=== PATIENT | female | born 1940 | race Caucasian/White ===

== ENCOUNTER 2020-09-23 21:51 | Emergency (ER) | payer MEDICARE, SELFPAY ==
--- NOTE | ~2020-09-23 | CT_ITS ---
EXAMINATION: CT soft tissue neck w con EXAM DATE: 09/24/2020 00:27 INDICATION: sore throat, tongue swelling. TECHNIQUE: Spiral CT of the neck was performed following intravenous injection of 75 mL Omnipaque 350 . Axial, coronal and sagittal images were reviewed. The dose-length product (DLP) for this examinat ion was 438.22 mGy-cm. The exposure was tailored according to patient size (auto mA exposure control ), and iterative reconstruction (ASIR) was used as additional dose reduction technique. There is no prior study for comparison. FINDINGS: The thyroid gland is unremarkable. The submandibular and parotid glands are symmetric. There is no cervical lymphadenopathy. There are no masses identified. The superior mediastinum is unremarkable. The airway is unremarkable. Parapharyngeal and pre-glottic fat planes are preserve d. The opacified vasculature is patent. Common carotid arteries are tortuous. Patient has had bilat eral ocular lens surgery. Visualized sinuses and mastoid air cells are well aerated. Lung apices are unremarkable. Severe cervical facet arthropathy. IMPRESSION: Unremarkable CT soft tissue neck w con exam. Reviewed, dictated and finalized at location A. [employer] [employer]
[2020-09-23 21:56] VITALS: BP 143/85; PULSE 112; RESP 18; TEMP 36.2; O2SAT 96
--- NOTE | 2020-09-23 22:57 | PC.NURSE ---
patient brought back to ED room 8 with c/o sore throat. see notes. no change in patient's condition since initial assessment done. alert. oriented. has seen PCP. was started on meds but no improvement.
--- NOTE | 2020-09-23 23:21 | ED.GENADULT ---
HPI - General Adult General Chief complaint: Unspecified Stated complaint: throat swelling x 1 week Time Seen by Provider: 09/23/20 23:13 Source: patient History of Present Illness HPI narrative: Patient is a 80 y/o female complaining of tongue swelling for 1 1/2 weeks. She has no significant pain. She states that her swelling is moderate. She states that her doctor gave her Rx for Medrol dose pack, which did not help. She is able swallow. She denies any SOB. Related Data Home Medications Medication Instructions Recorded Confirmed ascorbate calcium (vitamin C) 500 500 mg PO DAILY 07/21/20 08/04/20 mg tablet cholecalciferol (vitamin D3) 50 50 mcg PO DAILY 07/21/20 08/04/20 mcg (2,000 unit) capsule mecobalamin (vitamin B12) 1,000 1,000 mcg PO DAILY 07/21/20 08/04/20 mcg chewable tablet Allergies Allergy/AdvReac Type Severity Reaction Status Date / Time nitrofurantoin Allergy Unknown Unknown Verified 08/04/20 10:09 Penicillins Allergy Unknown Nausea Verified 08/04/20 10:09 Review of Systems Constitutional: Constitutional: Denies chills, Denies fever(s), Denies headache(s) and Denies weakness Eyes: Eyes: Denies blurry vision ENT: Denies headache(s), Denies neck pain, Reports throat swelling and Reports tongue swelling Cardiovascular: Cardiovascular: Denies chest pain and Denies dyspnea Respiratory: Respiratory: Denies cough and Denies dyspnea Gastrointestinal: Gastrointestinal: Denies abdominal pain, Denies diarrhea, Denies nausea and Denies vomiting Genitourinary: Genitourinary: Denies hematuria and Denies dysuria Musculoskeletal: Musculoskeletal: Denies back pain and Denies neck pain Neurologic: Denies headache(s) and Denies weakness [facility] Past Medical History Medical History Depression Hepatitis C History of blood transfusion Thyroid disease Surgical History Surgical History H/O cataract extraction H/O: hysterectomy History of breast lump removal Hx of cholecystectomy Family History Family History Mother Family history of malignant neoplasm of breast in first degree relative, Onset Age: 65 Father Family history of congestive heart failure Family history of cardiovascular disease, Onset Age: 80 Cerebrovascular accident, Onset Age: 80 Other Hypertension Social History Social History Alcohol intake: never Substance use: unknown Gender identity (if verbalized by the patient): Female Exam Const: General: no acute distress and well developed Orientation/consciousness: oriented to person, oriented to place, oriented to time and patient oriented x3 HENMT: Head: normocephalic Ears: external ears normal General nose exam: Normal external nose present Mouth: Yes other (no significant tongue swelling) Eyes: General: appearance normal, both eyes and all related structures Conjunctivae: conjunctivae normal Neck: Neck: normal visual inspection and full ROM Chest: Chest palpation & inspection: normal inspection of the chest and no tenderness Resp: Effort & Inspection: normal respiratory effort Auscultation: clear to auscultation bilaterally Cardio: Rate: regular rate Rhythm: regular rhythm GI: GI Palp: No abdominal tenderness and Yes Soft to palpation Skin: General skin exam: normal color and turgor normal Neuro: General: oriented to person, oriented to place, oriented to time and patient oriented x3 Cognition (Neuro): normal cognition Extrem: General: normal to inspection, full ROM and no pedal edema Psych: Appearance: grossly normal Mental Status: mental status grossly normal Affect: normal affect Course Reevaluation(s) Reevaluation #1: Discussed with patient about all her test results. She states that she has an appointment with ENT
[2020-09-23 23:40] LABS: Basophils Absolute Auto 0.1 K/mm3 (0.0-0.1); Basophils Percent Auto 0.7 % (0.2-1.2); Eosinophils Absolute Auto 0.1 K/mm3 (0-0.3); Eosinophils Percent Auto 1.7 % (0-4.4); Hematocrit 41.5 % (37.0-47.0); Hemoglobin 13.9 g/dL (12.0-15.0); Immature Granulocyte Absolute 0.03 K/mm3 (0.00-0.031); Immature Granulocyte Percent A 0.4 % (0-0.5); Lymphocytes Absolute Auto 2.79 K/mm3 (0.9-3.2); Lymphocytes Percent Auto 34.4 % (18.3-44.2); Mean Corpuscular HGB Conc 33.5 g/dl (32-36); Mean Corpuscular Hemoglobin 29.7 pg (26-34); Mean Corpuscular Volume 88.7 fl (80-100); Mean Platelet Volume 10.4 fl (7.4-10.4); Monocytes Absolute Auto 0.7 K/mm3 (0.1-0.6); Monocytes Percent Auto 9.1 % (2.6-8.5); Neutrophils Absolute Auto 4.4 K/mm3 (1.3-6.7); Neutrophils Percent Auto 53.7 % (45.5-73.1); Platelet Count Result 262 k/mm3 (150-375); Red Blood Count 4.68 M/mm3 (4.2-5.4); White Blood Count 8.1 K/mm3 (4.5-10.0)
--- NOTE | 2020-09-23 23:44 | PC.NURSE ---
patient with order for CT of throat. SL inserted. on BP and O2 monitors. alert. oriented. spouse in room. call light in reach. denies needs at this time. aware of current treatment plan and expected wait time.
[2020-09-23 23:53] VITALS: O2SAT 95
[2020-09-23 23:55] LABS: Alanine Aminotransferase 21 U/L (4-35); Albumin Level 4.2 g/dL (3.5-5.1); Alkaline Phosphatase 70 U/L (38-126); Anion Gap 6 mmol/L (8-16); Aspartate Amino Transferase 23 U/L (14-36); Bilirubin,Total 0.4 mg/dL (0.2-1.3); Blood Urea Nitrogen 25 mg/dL (7-17); Carbon Dioxide 29 mmol/L (22-30); Chloride 104 mmol/L (98-107); Estimated CRCL calculation 48 ml/min; Estimated Glomerular Filt Rate > 60; Glucose 92 mg/dL (65-105); Potassium 3.4 mmol/L (3.4-5.0); Sodium 139 mmol/L (137-145)
[2020-09-24 00:03] VITALS: O2SAT 95
[2020-09-24 00:30] VITALS: O2SAT 97
--- NOTE | 2020-09-24 00:41 | PC.NURSE ---
patient back from CT. resting on stretcher. on monitor. updated on expected wait time for results.
--- NOTE | 2020-09-24 01:27 | PC.NURSE ---
CT still not resulted. resting on stretcher. vitals printed.
== END 2020-09-24 01:37 | disposition home or self-care (01) ==
PROVIDERS: Emergency Provider Emergency Medicine; PCP Family Medicine
DX: K14.8 Other diseases of tongue (principal); Z86.19 Personal history of other infectious and parasitic diseases; Z98.49 Cataract extraction status, unspecified eye; E07.9 Disorder of thyroid, unspecified
CPT/HCPCS: 36415; 70491; 80053; 85025; 87880; 99284; Q9967

== ENCOUNTER 2020-12-02 08:24 | Outpatient (RCR) | payer MEDICARE, SELFPAY ==
--- NOTE | 2020-12-04 08:57 | STOPEVAL ---
SPEECH THERAPY EVALUATION AND DISCHARGE: Thank you for referring Sabina Sheppard to [facility]Upon completion of evaluation, it has been determined no further ST is warranted at this time. Please review, sign, date and return this plan of care BRIEN. I agree with and certify that the following plan of care is medically necessary. Referring Physician Date Admitting Provider: Iggy Robertson MD Attending Provider: Jack Dee PA-C Outpatient Past Medical History Past Medical History Source of Past Medical History Patient Neurological History Hx Other Neurological Disorders Yes: tardive dyskinesia Cardiovascular History Hx Other Cardiac Disorders Yes: on Metoprolol Respiratory History Hx Other Respiratory Disorders Yes: SOB Gastrointestinal History Hx Irritable Bowel Yes Genitourinary History Hx Other Genitourinary Disorders Yes: cyst, acquired Hematological History Hx Other Hematological Disorders Yes: Hep C Endocrine History Hx Hypothyroidism Yes HEENT History Hx Other HEENT Disorders Yes: vertigo Reproductive History Hx Other Reproductive Disorders Yes: cystic mastopathy of both breasts; left breast mass Psychosocial History Hx Anxiety Yes Hx Depression Yes Hx Other Psychiatric Disorders Yes: takes 3 antidepressants Evaluation Information Problem Diagnosis drug induced subacute dyskinesia Onset August 2020 Additional Evaluation Detail Pt reports during August of 2020 she began with a gradual soreness to her tongue, along gumline, and roof of mouth; she states it feels like she has sharp edges on some of her teeth; however, pt has seen 2 dentists who have both instructed her tooth edges are not sharp enough to be causing her tongue pain. She stated her mouth is very dry and her tongue feels thick and , at times, can stick to the roof of her mouth. Pt states her entire mouth feels full. She is currently exhibiting difficulty with her speech, especially when making the /s/ sound. Pt has seen multiple medical providers regarding these problems. She was instructed by her primary MD to take Benadryl & another
== END 2020-12-04 10:15 | disposition home or self-care (01) ==
LOC: ANHST 08:24
PROVIDERS: PCP Family Medicine; Visit Provider Physician Assistant
DX: G24.01 Drug induced subacute dyskinesia (principal); R13.10 Dysphagia, unspecified
CPT/HCPCS: 92522

== ENCOUNTER 2021-04-22 01:58 | Day surgery (SDC) | payer MEDICARE, SELFPAY ==
[2021-04-14 15:19] VITALS: BMI 23.8
[2021-04-22 10:34] VITALS: BP 126/74; PULSE 122; RESP 20; TEMP 35.9; O2SAT 100; BMI 23.7
--- NOTE | 2021-04-22 10:39 | P.PNAN_ITS ---
Anes - Initial Pre Proc Eval Procedure: Operation Date: 04/22/21 11:00 Proposed Procedures p Esophagogastroduodenoscopy - Joe Mckinnon MD Date/Time: 04/22/21 10:39 Surgeon: Joe Mckinnon MD Pre Op Diagnosis: nausea Patient Data Age: 81 Gender: F Height: 1.57 m Weight: 58.8 kg Last Vital Signs Temp 35.9 C L 04/22/21 10:34 Pulse 122 H 04/22/21 10:34 Resp 20 04/22/21 10:34 BP 126/74 04/22/21 10:34 Pulse Ox 100 04/22/21 10:34 Allergies Allergy/AdvReac Type Severity Reaction Status Date / Time nitrofurantoin Allergy Unknown Unknown Verified 04/22/21 10:33 Penicillins Allergy Unknown Nausea Verified 04/22/21 10:33 Home Medications Medication Instructions Recorded Confirmed Type metoprolol succinate 25 mg 25 mg PO DAILY #90 tablet 02/27/20 04/14/21 Rx tablet,extended release 24 hr amitriptyline 25 mg tablet 25 mg PO ONCE #90 tablet 10/14/20 04/14/21 Rx levothyroxine 50 mcg tablet See Rx Instructions .ROUTE 12/15/20 04/14/21 Rx .COMPLEX #30 tablet ondansetron 8 mg disintegrating 8 mg PO Q12H 04/06/21 04/14/21 History tablet pantoprazole 40 mg tablet,delayed 40 mg PO QAM 04/06/21 04/14/21 History release alprazolam 0.5 mg PO DAILY 04/14/21 04/14/21 History Patient hx anesthesia problems: none Family hx anesthesia problems: none [facility] Past Medical History Medical History Depression Hepatitis C History of blood transfusion Thyroid disease Surgical History Surgical History H/O cataract extraction H/O: hysterectomy History of breast lump removal Hx of cholecystectomy Family History Family History Mother Family history of malignant neoplasm of breast in first degree relative, Onset Age: 65 Father Family history of congestive heart failure Family history of cardiovascular disease, Onset Age: 80 Cerebrovascular accident, Onset Age: 80 Other Hypertension Social History Social History Smoking status: Never smoker Alcohol intake: never Substance use: never Substance use type: does not use Living arrangements: with family Gender identity (if verbalized by the patient): Female Spiritual care concerns: No Anes - Eval Final PreProcedure Day of Procedure 04/22/21 10:39 Patient weight: normal Heart: regular rate and rhythm Lungs: clear to auscultation Airway: Mallampati scale class II Neurological: alert and oriented Last oral intake: >/= 8 hours ASA classification: II Emergent: no Anesthetic plan: proceed Anesthesia type and monitoring: general GIVS and standard monitoring Informed Consent: The patient's anesthetic plan and its attendant risks and benefits were discussed with the patient/family/POA. Questions were solicited and answers provided to the satisfaction of the patient/family/POA.
[2021-04-22] MEDS: LACTATED RINGERS 1,000 ML 150 ML IV CONT (10:47)
[2021-04-22 10:50] VITALS: PULSE 100
--- NOTE | 2021-04-22 10:56 | WPDHPUPDATE1 ---
History and Physical Update Update Date/Time: 04/22/21 10:56 History and Physical has been reviewed, including an updated exam of the patient. There are NO changes in the patient's condition. Risks, benefits, and alternatives have been discussed and questions answered. Patient agrees to proceed with procedure.
[2021-04-22 11:09] VITALS: BP 125/72; PULSE 83; RESP 23; O2SAT 100
[2021-04-22 11:19] VITALS: BP 111/64; PULSE 79; RESP 25; O2SAT 100
[2021-04-22 11:29] VITALS: BP 143/76; PULSE 73; RESP 18; O2SAT 100
== END 2021-04-22 11:52 | disposition home or self-care (01) ==
PROVIDERS: PCP Family Medicine; Visit Provider Internal Medicine Gastroenterology
PROC: 0DJ08ZZ Inspection of Upper Intestinal Tract, Via Natural or Artificial Opening Endoscopic (ICD-10-PCS; CPT 43235; principal; 2021-04-22 11:00)
DX: R11.0 Nausea (principal); F32.9 Major depressive disorder, single episode, unspecified; E03.9 Hypothyroidism, unspecified; B19.20 Unspecified viral hepatitis C without hepatic coma
CPT/HCPCS: 43239; 87081; J2001; J2704; J7120

== ENCOUNTER 2022-03-15 20:43 | Emergency (ER) | payer MEDICARE, SELFPAY ==
--- NOTE | ~2022-03-15 | CT_ITS ---
EXAMINATION: CT abdomen pelvis w con DATE: 03/15/2022 23:00 INDICATION: Epigastric pain TECHNIQUE: Computed tomography (CT) of the abdomen and pelvis was performed with 100 mL Omnipaque-300 intravenous contrast. Automated exposure control and iterative reconstruction technique were employe d. The dose-length product was 439.66 mGy-cm. COMPARISON: 05/23/2015 FINDINGS: Minimal bibasilar atelectasis. Visualized inferior heart is normal. No pericardial or pleural effusio n. Cholecystectomy clips the gallbladder fossa. Liver, spleen, pancreas, bilateral adrenal glands and left kidney are normal. 1 cm right renal cyst. There are few scattered clonic diverticula without ad jacent inflammatory change to suggest diverticulitis. No bowel obstruction. The appendix is not visua lized. No pericecal inflammatory change to suggest acute appendicitis. No interval change in a couple aneurysms along the distal splenic artery measuring 1.4 x 1.1 cm and 1.1 cm in maximal diameters. Bl adder is normal. The uterus is not identified and has likely been surgically resected. No free int raperitoneal gas or fluid. No pathologically enlarged abdominal or pelvic lymphadenopathy. Mild lumba r levocurvature with moderate to severe spondylosis. IMPRESSION: 1. No acute intra-abdominal/pelvic process. 2. A couple unchanged splenic artery aneurysms, the largest measuring 14 x 11 mm. 2. Mild diverticulosis. Reviewed, dictated and finalized at location A. IMPRESSION: 1. No acute intra-abdominal/pelvic process. 2. A couple unchanged splenic artery aneurysms, the largest measuring 14 x 11 m m. 2. Mild diverticulosis.
--- NOTE | ~2022-03-15 | XR_ITS ---
EXAMINATION: XR chest 1V portable Exam Date/Time: 03/15/2022 21:00 CDT HISTORY: WEAKNESS, NAUSEA, HTN, HEPATITIS C, THYROID DISEASE Comparison: None available. RESULT: Lines, tubes, and devices: Cholecystectomy clips. Vascular opacifications in the upper abdomen. Lungs and pleura: Senescent change, otherwise clear. Cardiomediastinal silhouette: Unremarkable. Other: No acute osseous or upper abdominal finding. IMPRESSION: No acute cardiopulmonary process. Reviewed, dictated and finalized at location K.
--- NOTE | 2022-03-15 20:48 | ECG_ITS ---
Measurements Intervals [place] Rate: 78 P: 57 [place]: 165 QRS: -2 QRSD: 86 T: 38 QT: 364 QTc: 415 Interpretive Statements SINUS RHYTHM LEFT VENTRICULAR HYPERTROPHY WITH ST-T CHANGE BORDERLINE ST ABNORMALITY- LATERAL LEADS BASELINE ARTIFACT- V4 BORDERLINE ECG Electronically Signed On 03-16-2022 7:47:58 CDT by Parker Norton D.O.
[2022-03-15 20:54] VITALS: BP 196/74; PULSE 72; RESP 18; TEMP 36.6; O2SAT 99
--- NOTE | 2022-03-15 21:01 | ED.GENADULT ---
HPI - General Adult General Chief complaint: Weakness Stated complaint: nausea, high bp, head feels funny Time Seen by Provider: 03/15/22 21:01 Source: patient and family Mode of arrival: ambulatory History of Present Illness HPI narrative: 81 years old white female presents with sick in stomach all day associated with nausea, denies any fever, chills, vomiting, diarrhea, constipation, chest pain, shortness of breath, back pain. Patient is telling me that she have a touchy stomach. Patient started exercise once a week, today lasted for 1 hour which which is too much. The reports that patient been under tremendous amount of stress lately Related Data Home Medications Medication Instructions Recorded Confirmed pantoprazole 40 mg tablet,delayed 40 mg PO QAM 04/06/21 01/21/22 release cholecalciferol (vitamin D3) 50 50 mcg PO DAILY 07/03/21 01/21/22 mcg (2,000 unit) capsule mecobalamin (vitamin B12) 1,000 1,000 mcg PO DAILY 07/03/21 01/21/22 mcg chewable tablet alprazolam 0.25 mg tablet 0.25 mg PO BID 12/14/21 01/21/22 Allergies Allergy/AdvReac Type Severity Reaction Status Date / Time nitrofurantoin Allergy Unknown Unknown Verified 03/15/22 21:20 Penicillins Allergy Unknown Nausea Verified 03/15/22 21:20 Review of Systems Review of Systems: All systems reviewed & are unremarkable except as noted in HPI and below PMFSH Past Medical History Medical History Depression Hepatitis C History of blood transfusion Thyroid disease Surgical History Surgical History H/O cataract extraction H/O: hysterectomy History of breast lump removal Hx of cholecystectomy Family History Family History Mother Family history of malignant neoplasm of breast in first degree relative, Onset Age: 65 Father Family history of congestive heart failure Family history of cardiovascular disease, Onset Age: 80 Cerebrovascular accident, Onset Age: 80 Other Hypertension Social History Social History Smoking status: Never smoker Alcohol intake: never Substance use: never Substance use type: does not use Gender identity (if verbalized by the patient): Female Spiritual care concerns: No Exam Narrative: General appearance: Well-developed, well-nourished Skin: Normal color Head: Normocephalic, nontraumatic Eyes: Clear conjunctiva ENT: Oropharynx normal, ears normal, nose normal Neck: Supple, nontender Chest and respiratory: Airway patent, no respiratory distress, no accessory muscle use Heart: Regular rate/rhythm Abdomen: Soft, nontender, no organomegaly, quiet bowel sounds Vascular: Normal peripheral pulses, normal capillary refill. Musculoskeletal: Normal range of motion, nontender back Neurologic: Alert and oriented ?3, [employer] is normal as tested, no gross motor deficit Course Vital Signs Vital signs: Vital Signs Temperature 36.6 C 03/15/22 20:54 Pulse Rate 72 03/15/22 20:54 Respiratory Rate 18 03/15/22 20:54 Blood Pressure 196/74 H 03/15/22 20:54 Pulse Oximetry 99 03/15/22 20:54 Oxygen Delivery Room Air 03/15/22 20:54 Temperature 36.6 C 03/15/22 20:54 Pulse Rate 77 03/16/22 03:26 Respiratory Rate 18 03/16/22 03:26 Blood Pressure 165/88 H 03/16/22 03:26 Pulse Oximetry 96 03/16/22 03:26 Oxygen Delivery Room Air 03/15/22 20:54 Medical Decision Making Vital Signs Vital Signs: Vital Signs Temperature 36.6 C 03/15/22 20:54 Pulse Rate 72
[2022-03-15 21:32] LABS: Basophils Absolute Auto 0.1 K/mm3 (0.0-0.1); Basophils Percent Auto 1.3 % (0.2-1.2); Eosinophils Absolute Auto 0.2 K/mm3 (0-0.3); Eosinophils Percent Auto 3.5 % (0-4.4); Hematocrit 38.4 % (37.0-47.0); Hemoglobin 12.9 g/dL (12.0-15.0); Immature Granulocyte Absolute 0.01 K/mm3 (0.00-0.031); Immature Granulocyte Percent A 0.2 % (0-0.5); Lymphocytes Absolute Auto 2.39 K/mm3 (0.9-3.2); Lymphocytes Percent Auto 39.9 % (18.3-44.2); Mean Corpuscular HGB Conc 33.6 g/dl (32-36); Mean Corpuscular Hemoglobin 29.7 pg (26-34); Mean Corpuscular Volume 88.5 fl (80-100); Mean Platelet Volume 10.7 fl (7.4-10.4); Monocytes Absolute Auto 0.5 K/mm3 (0.1-0.6); Neutrophils Absolute Auto 2.8 K/mm3 (1.3-6.7); Neutrophils Percent Auto 47.1 % (45.5-73.1); Platelet Count Result 238 k/mm3 (150-375); Red Blood Count 4.34 M/mm3 (4.2-5.4); Red Cell Distribution Width 12.3 % (11.5-14.5)
[2022-03-15 21:36] LABS: Appearance Urine Clear (Clear); Bilirubin Urine Negative (Negative); Glucose Urine UA Negative (Negative); Ketones Urine Negative (Negative); Leukocyte Esterase Ur Trace LEU/UL (Negative); Nitrate Urine Negative (Negative); Protein Urine Negative (Negative); Specific Grav Ur 1.015 (1.001-1.035); Urobilinogen Urine 0.2 mg/dL (<2.0)
[2022-03-15 21:42] LABS: Mucus Urine Rare /lpf; RBC Urine 0-2 /hpf (0-2); Squamous Epithelial Cell Urine Rare /hpf (Few); WBC Urine 0-3 /hpf
[2022-03-15 21:46] LABS: Add Urine Microscopic? YES; Blood Urine Trace (Negative); Color Urine Light Yellow (Yellow)
[2022-03-15 22:05] LABS: Troponin I < 0.012 ng/mL (0.000-0.034)
[2022-03-15 22:08] LABS: SARS-CoV-2 RNA PCR Negative
[2022-03-15] MEDS: ONDANSETRON INJ 4 MG/2 ML VIAL IV PUSH (22:25)
[2022-03-15] MEDS: BELLADONNA ALK/PHENOB ELIX 10 ML, MAG HYDROX/ALUMINUM HYD/SIMETH 30 ML, LIDOCAINE HCL 2... PO (22:26)
[2022-03-15 22:36] LABS: Alanine Aminotransferase 13 U/L (6-35); Alkaline Phosphatase 66 U/L (38-126); Anion Gap 6 mmol/L (8-16); Aspartate Amino Transferase 18 U/L (14-36); Bilirubin,Total 0.7 mg/dL (0.2-1.3); Blood Urea Nitrogen 14 mg/dL (7-17); Calcium 8.7 mg/dL (8.4-10.2); Carbon Dioxide 28 mmol/L (22-30); Chloride 105 mmol/L (98-107); Estimated CRCL calculation 47 ml/min; Estimated Glomerular Filt Rate > 60; Glucose 97 mg/dL (65-110); Lipase 81 U/L (23-300); Potassium 3.6 mmol/L (3.4-5.0); Sodium 139 mmol/L (137-145)
[2022-03-16] MEDS: PANTOPRAZOLE SODIUM IV 40 MG VIAL IV PUSH (03:23)
[2022-03-16 03:26] VITALS: BP 165/88; PULSE 77; RESP 18; O2SAT 96
[2022-03-16 07:21] VITALS: BP 140/64; PULSE 63; RESP 18; O2SAT 97
== END 2022-03-16 07:19 | disposition home or self-care (01) ==
PROVIDERS: Emergency Medicine; Emergency Provider Emergency Medicine; PCP Emergency Medicine
DX: R10.13 Epigastric pain (principal); Z20.822 Contact with and (suspected) exposure to COVID-19; E07.9 Disorder of thyroid, unspecified; F32.A Depression, unspecified; Z98.49 Cataract extraction status, unspecified eye; Z90.710 Acquired absence of both cervix and uterus; Z86.19 Personal history of other infectious and parasitic diseases
CPT/HCPCS: 36415; 71045; 74177; 80053; 81001; 83690; 84484; 85025; 93005; 96374; 96375; 99284; A9270; C9113; C9803; J2405; Q9967; U0003; U0005

== ENCOUNTER → 2022-03-22 10:36 | Outpatient (CLI) | payer MEDICARE, SELFPAY ==
--- NOTE | ~2022-03-22 | XR_ITS ---
EXAMINATION: XR abdomen obstructive series DATE: 03/22/2022 10:57 INDICATION: Abdominal pain TECHNIQUE: Upright and supine views of the abdomen were obtained. COMPARISON: CT, 03/15/2022 FINDINGS: The visualized lung bases are clear. There are no dilated loops of bowel. The bowel gas pat tern is normal. Cholecystectomy clips are noted. There are rim calcified splenic artery aneurysms of the left upper quadrant which measure up to 14 mm. IMPRESSION: 1. No radiographic correlate for the patient's symptoms. Reviewed, dictated and finalized at location B.
== END ==
PROVIDERS: PCP Emergency Medicine; Visit Provider Physician Assistant
DX: R19.8 Other specified symptoms and signs involving the digestive system and abdomen (principal)
CPT/HCPCS: 74019

== ENCOUNTER 2022-04-08 09:40 | Outpatient (CLI) | payer MEDICARE, SELFPAY ==
[2022-04-08 13:39] LABS: Free T4 Free Thyroxine 0.82 ng/mL (0.78-2.19)
== END 2022-04-08 09:41 | disposition home or self-care (01) ==
LOC: ANHGOSHLAB 09:44
PROVIDERS: PCP Emergency Medicine; Visit Provider Emergency Medicine
DX: E07.9 Disorder of thyroid, unspecified (principal)
CPT/HCPCS: 36415; 84439; 84443

== ENCOUNTER 2022-06-28 10:00 | Outpatient (RCR) | payer MEDICARE, SELFPAY ==
--- NOTE | 2022-05-31 10:31 | STOPEVAL1 ---
Assessment and note entered by ANYI Krishnan Evaluation Information Assessment Status Evaluation Reported Pain Level Pain Score 0: Self Report Assessment ST Clinical Summary Sabina Sheppard is an 82 year old who was referred to our clinic with medication-induced tardive dyskinesia. Patient was taken off medication approximately two years ago and dysarthria and voice disorders have persisted since then. Patient was also recently diagnosed with Parkinson's disease. Patient lives with who can understand her in any setting, however patient describes increased difficulty with unfamiliar listeners. Patient describes her tongue feeling swollen which makes it difficult to speak precisely in addition to the hoarse quality of her voice. Patient completed an oral-mechanism examination. Labial structure is slightly deviant right but otherwise tone, range of motion, and strength are all within normal limits. Patient's lingual structure, tone, and range of motion are all within normal limits; however, gross lingual weakness (elevation, lateralization, protrusion) was observed. Soft palate tone and elevation were judged to be within normal limits. Patient's voice was hoarse throughout entire evaluation; patient describes this to be normal, but does not become aphonic over time. Patient demonstrated a decrease in breath support as evidenced by 8 second prolonged vowel phonation (typical should be 15-20 seconds). Patient's overall speech was slightly slurred, but 100% intelligible throughout conversation. Recommend skilled ST services 1x/week for 4 weeks to target dysarthric speech and voice deficits in addition to educating on compensatory strategies for patient to communicate clearly for optimal safety. Plan of Care Interventions Treatment of Speech ST Services Indicated Yes Treatment Frequency and .1x/week for 4 weeks Duration These treatments will address the objective and functional deficits as defined above. The patient will be advanced safely and appropriately in order for the patient to progress towards his/her prior level of function. Additional exercises will be introduced and as well as a comprehensive home exercise program upon discharg
--- NOTE | 2022-06-28 12:22 | STOPEVDC ---
Assessment and note entered by Latonia Villegas ELECTRONIC TEST TECHNICIAN Thank you for referring Sabina Sheppard to [facility] An evaluation has been completed. No further treatment is needed. Evaluation Information Assessment Status Re-evaluation Reported Pain Level Pain Score 0: Self Report Assessment ST Clinical Summary Sabina Sheppard has completed a re-evaluation for voice deficits and dysarthric speech after completing 4 out of 4 scheduled appointments. Patient has been assigned a home exercise program to complete 2x/day and reports that she is mostly completing it 1x/day. Patient demonstrates ability to carryout exercises in home program with minimum to moderate verbal and visual cues. Patient's vocal quality has improved with increased breath support; sustained phonation has improved from an average of 8 seconds to an average of 24 seconds. This improvement has been a result of improved diaphragmatic breathing and more efficient use of vocal folds. Patient has been educated on importance of continuing exercise program as a result of her Parkinson's diagnosis. Patient also demonstrate mildly slurred speech upon evaluation. With education on anterior lingual placement and introducing a home exercise program to improve anterior lingual range of motion, patient's speech has increased in perceptual quality and she is pleased that she sounds more like myself . Due to patient meeting all set goals, patient will d/c from skilled ST with a home program to continue in order to maintain or improve vocal quality and intelligibility. Thank you for this referral. Plan of Care Interventions Treatment of Speech,Treatment of Voice ST Services Indicated No
== END 2022-06-30 09:35 | disposition home or self-care (01) ==
LOC: ANHGOSHST 10:00
PROVIDERS: PCP Emergency Medicine; Visit Provider Emergency Medicine
DX: G24.01 Drug induced subacute dyskinesia (principal); R47.1 Dysarthria and anarthria
CPT/HCPCS: 92507; 92522; 92524

== ENCOUNTER 2022-07-30 08:34 | Outpatient (CLI) | payer MEDICARE, SELFPAY ==
[2022-07-30 19:18] LABS: Alanine Aminotransferase 15 U/L (6-35); Albumin Level 4.2 g/dL (3.5-5.1); Alkaline Phosphatase 64 U/L (38-126); Anion Gap 8 mmol/L (8-16); Aspartate Amino Transferase 36 U/L (14-36); Bilirubin,Total 0.6 mg/dL (0.2-1.3); Blood Urea Nitrogen 17 mg/dL (7-17); Calcium 8.7 mg/dL (8.4-10.2); Carbon Dioxide 28 mmol/L (22-30); Chloride 101 mmol/L (98-107); Cholesterol 201 mg/dL (0-200); Estimated Glomerular Filt Rate > 60; Glucose 83 mg/dL (65-110); HDL Direct 43 mg/dL; Potassium 3.9 mmol/L (3.4-5.0); Sodium 137 mmol/L (137-145); Triglycerides 161 mg/dL (<150)
[2022-07-30 19:30] LABS: LDL Cholesterol Direct 101 mg/dL
== END 2022-07-30 08:35 | disposition home or self-care (01) ==
LOC: ANHGOSHLAB 08:39
PROVIDERS: PCP Emergency Medicine; Visit Provider Physician Assistant
DX: Z51.81 Encounter for therapeutic drug level monitoring (principal); Z79.899 Other long term (current) drug therapy; E78.2 Mixed hyperlipidemia
CPT/HCPCS: 36415; 80053; 80061

== ENCOUNTER 2022-12-20 08:31 | Outpatient (CLI) | payer MEDICARE, SELFPAY ==
[2022-12-20 18:47] LABS: Alanine Aminotransferase 17 U/L (6-35); Albumin Level 4.3 g/dL (3.5-5.1); Alkaline Phosphatase 70 U/L (38-126); Anion Gap 5 mmol/L (8-16); Aspartate Amino Transferase 56 U/L (14-36); Bilirubin,Total 0.8 mg/dL (0.2-1.3); Blood Urea Nitrogen 17 mg/dL (7-17); Calcium 8.9 mg/dL (8.4-10.2); Carbon Dioxide 32 mmol/L (22-30); Chloride 102 mmol/L (98-107); Cholesterol 222 mg/dL (0-200); Estimated Glomerular Filt Rate > 60; Glucose 80 mg/dL (65-110); HDL Direct 47 mg/dL; Potassium 3.6 mmol/L (3.4-5.0); Sodium 139 mmol/L (137-145); Triglycerides 161 mg/dL (<150)
[2022-12-20 18:57] LABS: LDL Cholesterol Direct 116 mg/dL
== END 2022-12-20 08:32 | disposition home or self-care (01) ==
LOC: ANHGOSHLAB 08:33
PROVIDERS: PCP Family Medicine; Visit Provider Family Medicine
DX: E78.2 Mixed hyperlipidemia (principal); E07.9 Disorder of thyroid, unspecified; Z79.899 Other long term (current) drug therapy
CPT/HCPCS: 36415; 80053; 80061; 84443

== ENCOUNTER 2023-06-24 08:04 | Outpatient (CLI) | payer MEDICARE, SELFPAY ==
[2023-06-24 12:04] LABS: Alanine Aminotransferase 14 U/L (6-35); Albumin Level 4.2 g/dL (3.5-5.1); Alkaline Phosphatase 61 U/L (38-126); Anion Gap 6 mmol/L (8-16); Aspartate Amino Transferase 30 U/L (14-36); Bilirubin,Total 0.9 mg/dL (0.2-1.3); Blood Urea Nitrogen 20 mg/dL (7-17); Carbon Dioxide 29 mmol/L (22-30); Chloride 104 mmol/L (98-107); Estimated Glomerular Filt Rate > 60; Glucose 91 mg/dL (65-110); Potassium 3.9 mmol/L (3.4-5.0); Sodium 139 mmol/L (137-145)
== END 2023-06-24 08:05 | disposition home or self-care (01) ==
LOC: ANHGOSHLAB 08:06
PROVIDERS: PCP Family Medicine; Visit Provider Family Medicine
DX: E07.9 Disorder of thyroid, unspecified (principal); B19.20 Unspecified viral hepatitis C without hepatic coma
CPT/HCPCS: 36415; 80053; 84443

== ENCOUNTER 2023-08-31 14:41 | Outpatient (CLI) | payer MEDICARE, SELFPAY ==
[2023-08-31 20:31] LABS: Alanine Aminotransferase 12 U/L (6-35); Albumin Level 4.3 g/dL (3.5-5.1); Alkaline Phosphatase 66 U/L (38-126); Anion Gap 8 mmol/L (8-16); Aspartate Amino Transferase 31 U/L (14-36); Bilirubin,Total 0.5 mg/dL (0.2-1.3); Blood Urea Nitrogen 19 mg/dL (7-17); Calcium 8.9 mg/dL (8.4-10.2); Carbon Dioxide 31 mmol/L (22-30); Chloride 102 mmol/L (98-107); Cholesterol 207 mg/dL (0-200); Estimated Glomerular Filt Rate 60; Glucose 97 mg/dL (65-110); HDL Direct 51 mg/dL; Potassium 3.8 mmol/L (3.4-5.0); Sodium 141 mmol/L (137-145); Triglycerides 219 mg/dL (<150)
[2023-08-31 20:42] LABS: LDL Cholesterol Direct 102 mg/dL
[2023-09-02 12:32] LABS: Immunoglobulin A 183 mg/dL (70-320); TTG IGA AB <1.0 U/mL (<15.0)
== END 2023-08-31 14:42 | disposition home or self-care (01) ==
LOC: ANHGOSHLAB 14:43
PROVIDERS: PCP Family Medicine; Visit Provider Family Medicine
DX: E07.9 Disorder of thyroid, unspecified (principal); E78.2 Mixed hyperlipidemia; K30 Functional dyspepsia; K58.9 Irritable bowel syndrome, unspecified; K59.01 Slow transit constipation; Z79.899 Other long term (current) drug therapy
CPT/HCPCS: 36415; 80053; 80061; 82784; 86364

== ENCOUNTER 2023-09-12 08:13 | Outpatient (CLI) | payer MEDICARE, SELFPAY ==
--- NOTE | ~2023-09-12 | XR_ITS ---
EXAMINATION: XR small bowel follow through DATE: 09/12/2023 11:13 INDICATION: Functional dyspepsia. Constipation and Parkinson's disease. TECHNIQUE: Book Sewer radiograph(s) of the abdomen was/were obtained. Oral contrast was administered, and sequential radiographs of the abdomen were obtained until oral contrast was noted to be in the proxi mal colon. Spot fluoroscopic images of the small bowel were obtained. Fluoroscopy exposure time was 1 .3 minutes. A total of 6 overhead radiographs and 172 fluoroscopic images were recorded. Total DAP wa s 47.806 Gycm^2 COMPARISON: CT dated 03/15/2022 FINDINGS: Book Sewer radiographs demonstrate cholecystectomy clips in the right upper quadrant. Again seen are rim c alcified splenic artery aneurysms in the left upper quadrant. Mild lumbar levoscoliosis with moderate spondylosis.Transit time from the stomach to proximal colon was approximately 60-90 minutes. There i s normal caliber and mucosal fold pattern throughout the small bowel. Terminal ileum is normal. No tethering or abnormal mass effect observed upon the small bowel with real-time fluoroscopy. IMPRESSION: 1. Normal small bowel follow-through. Reviewed, dictated and finalized at location A. ING MECHANIC
== END 2023-09-12 08:14 | disposition home or self-care (01) ==
LOC: ANHIMG 08:16
PROVIDERS: PCP Family Medicine; Visit Provider Family Medicine
DX: K30 Functional dyspepsia (principal); K59.01 Slow transit constipation; G20.A1 Parkinson's disease without dyskinesia, without mention of fluctuations
CPT/HCPCS: 74250

== ENCOUNTER 2023-12-07 12:31 | Outpatient (CLI) | payer MEDICARE, SELFPAY | END 2023-12-07 12:32 | disposition home or self-care (01) | LOC: ANHGOSHLAB 12:32 | PROVIDERS: PCP Family Medicine; Visit Provider Family Medicine | DX: Z79.899 Other long term (current) drug therapy (principal) | CPT/HCPCS: 36415; 84443 ==

== ENCOUNTER 2024-10-27 10:54 | Outpatient (CLI) | payer MEDICARE, SELFPAY | END 2024-10-27 10:55 | disposition home or self-care (01) | PROVIDERS: PCP Family Medicine; Visit Provider Nurse Practitioner Family | DX: S89.91XA Unspecified injury of right lower leg, initial encounter (principal); X58.XXXA Exposure to other specified factors, initial encounter | CPT/HCPCS: 73564 ==

== ENCOUNTER 2024-11-02 09:20 | Outpatient (CLI) | payer MEDICARE, SELFPAY ==
--- NOTE | ~2024-11-02 | MR_ITS ---
EXAMINATION: MR knee RT wo con DATE: 11/02/2024 09:51 INDICATION: Right knee pain TECHNIQUE: Magnetic resonance imaging (MRI) of the right knee was performed without intravenous contr ast. Sequences included coronal PD-weighted FSE, coronal PD-weighted FS FSE, sagittal T2-weighted FS E, sagittal PD-weighted FS FSE and axial PD weighted fat saturated FSE. COMPARISON: 01/04/2012 FINDINGS: Medial compartment: Medial meniscus is normal. There is mild chondral surface irregularity along the anterior weightbeari ng medial femoral condyle. Articular cartilage is normal lung the medial tibial plateau. Lateral compartment: Lateral meniscus is normal. Articular cartilage is normal. Patellofemoral compartment: Deep chondral fissuring with small focus of underlying subarticular edema-like signal change at the c entral aspect of the medial patellar facet. Remaining articular cartilage is normal. Ligaments and tendons: Anterior and posterior cruciate ligaments are normal. Thickening and minimal increased signal of the proximal medial collateral ligament consistent with residual scarring related to the previously seen moderate grade sprain or no surrounding edema to suggest acute reinjury. Fibular collateral ligament complex is normal. The extensor mechanism is normal. The visualized medial and lateral hamstring tend ons as well as the iliotibial band are normal. Fluid: Physiologic amount of fluid in the joint space. No loose osteochondral bodies identified. Osseous/other: Normal marrow signal. No fracture or pathologic marrow replacing process. IMPRESSION: 1. 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 2. 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 Reviewed, dictated and finalized at location B. [employer] SAL[employer] IMPRESSION: 1. 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 2. Scarring consistent with chronic partial tear of the proximal medial collate ral ligament.
== END 2024-11-02 09:21 | disposition home or self-care (01) ==
LOC: GOSHIMG 09:20
PROVIDERS: PCP Family Medicine; Visit Provider Nurse Practitioner Family
DX: M17.11 Unilateral primary osteoarthritis, right knee (principal); M22.41 Chondromalacia patellae, right knee
CPT/HCPCS: 73721

== ENCOUNTER 2024-12-28 14:30 | Outpatient (RCR) | payer MEDICARE, SELFPAY ==
--- NOTE | 2024-11-12 09:50 | BUSTOPEVAL1 ---
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 Patient reported that she noticed changes in her voice over the past 5 years . She reported that it has not gotten significantly worse but it is very different from what is was prior to the onset and it impacts her overall ability to communicate with others. Patient reported that around that time she had a lot of other health problems and was diagnosed with Parkinsonism. She went to the hospital with severe shaking in her legs, arms and mouth. She was then instructed to stop taking the current medicine she had been taking for years due to the causes of dyskinesia. Patient reported that she always feels that she has an enlarged tongue and this causes difficulty in speech and swallowing. She had Botox injections in the past (unable to recall exact date) to tongue to attempt reduce tongue tremor with some noted improvements. Patient reported that her voice impacts her daily and her goal is to improve her overall clarity of speech. Reported Pain Level Pain Score 2: Self Report Assessment ST Clinical Summary Patient was referred for a skilled ST evaluation by her doctor for dysphonia, drug induced subacute dyskinesia and unspecified speech disturbance. Patient reported that she continues to struggle with her voice and it is very different than her normal. She experienced an episode of medical issues around 5 years ago along with impaired speech that never returned to her normal. She reported that she was later on diagnosed with Parkinsonism. She feels that her tongue always feels enlarged and also has difficulty with her breathing impacting her overall speech skills. She had Botox injections in the past for her tongue and felt that it helped some. Throughout the evaluation the patient presented with moderate/ severe vocal hoarseness, moderate harshness, mild/ moderate breathiness. She presented with difficulty sustaining ah sound for appropriate length of time 12 seconds (goal is 15-25 seconds). S:Z ratio was also 1.8 indicating potential problems with glottal valving. Patient presented with good overall speech intelligibility skills but presented with some breathy vocal quality. Patient expressed that her voice continues to impact her overall ability to communicate with familiar and unfamiliar listeners in person and on the phone resulting in frequent frustration with vocal quality. Recommendation for skilled ST treatment to target dysphonia, dyskinesia, and speech disturbance through the use of the vocal function exercise program and respiratory support/ control exercises 1x/week for 10 visitis. These treatments will address the objective and functional deficits as defined above. The patient will be advanced safely and appropriately in order for the patient to progress towards his/her prior level of function. Additional exercises will be introduced and as well as a comprehensive home exercise program upon discharge, if needed, ?to ensure carryover of functional gains achieved in the clinic. This treatment plan has been reviewed and agreement upon by the patient.
--- NOTE | 2024-11-27 13:01 | OPREHPOC ---
Outpatient Therapy Plan of Care This is a Multidisciplinary Plan of Care that may contain components documented by all disciplines (PT, OT, and ST.) PT Problem 1 PT Problem #1 Knowledge Deficit PT Goal 1 Goal / Goal Update [place] with HEP Target Visit 4 PT Goal 2 Goal / Goal Update Report no pain greater than 2/10 for 2 consecutive weeks Target Visit 8 PT Problem 2 PT Problem #2 Impaired Range of Motion PT Goal 1 Goal / Goal Update 1. Improve abbie hip abduction to 35 degrees to reduce capsular restriction 2. Improve abbie cervical rotation to 35 degrees to improve facet mobility and posturing. PT Problem 3 PT Problem #3 Impaired Functional Mobility PT Goal 1 Goal / Goal Update Report 20% improvement in functional outcome score to reduce gross disability Target Visit [address] Problem #[address] Goal 1 Goal / Goal Update 1. Patient will participate in home programming to facilitate carryover/generalization of skills to patient's environment. Target Visit [address] Problem #[address] Goal 1 Goal / Goal Update 1. Patient will identify and reduce use and misuse with voice with minimal to no cues to improve overall voice quality. 2. Patient will decrease vocal fatigue, less effort speaking, through patient report with minimal loss of voice & vocal hoarse weekly for 3 consecutive sessions. Target Visit [address] Problem #[address] Goal 1 Goal / Goal Update 1. Patient will demonstrate improved coordination in diaphragmatic breathing with min cues in upright position through sustained sounds with minimal loss and breathiness. 2. Patient will sustain /i/ sound through vocal function exercise for 18+ seconds 5 reps with minimal vocal hoarseness. 3. Patient will perform semi occluded vocal tract exercise low to high and high to low with minimal to no vocal hoarseness for 3 consecutive sessions 4. Patient will perform adductory stretching exercise producing o sound on musical notes (C,D ,E,F,G) for 18+ seconds for 3 consecutive sessions . 5. Patient will speak at the conversation level with minimal vocal harshness, hoarseness, breathiness, vocal gabriel through patient report and clinician report for 3 consecutive sessions. Target Visit 10
--- NOTE | 2024-11-27 13:01 | PTOPEVAL1 ---
Assessment and note entered by Troy Drake, PT Evaluation Information Assessment Status Evaluation ICD-10 Condition Codes (PT) Pain in right shoulder M25.511,Pain in right knee M25.561 Subjective Information Reports that she recently went through therapy for her TMJ and noted increased pain in both the jaw and the shoulder. She then got a second opinion and will be seeing an containers sales representative in [place] to follow up on alternative treatment. She was having severe headaches after her TMJ therapy. She reports that she was also being seen for her knee and leg. She feels that the therapy was away too intense and she could not stand it so she decided not to go anymore. She has taken time off and is feeling better over all, but still feel like she has work to do. Her goal for therapy is to reduce the soreness in her back and shoulder and improve her walking due to right knee pain. Reported Pain Level Pain Score 2: Self Report Assessment PT Clinical Summary Patient presents with mobility deficit in abbie hips and cervical spine. Increased cervical tone noted in cervical spine and poor mobility of right hip with direct implication to knee pain. Patient has low tolerance to mobilization and exercise and will need to be gradually progressed into exercise and mobility activity. Plan of Care Interventions Gait Training,Neuro Re-education,Therapeutic Activities,Therapeutic Exercise PT Services Indicated Yes Treatment Frequency and 2x/week for 8 visits Duration These treatments will address the objective and functional deficits as defined above. The patient will be advanced safely and appropriately in order for the patient to progress towards his/her prior level of function. Additional exercises will be introduced and as well as a comprehensive home exercise program upon discharge, if needed, ?to ensure carryover of functional gains achieved in the clinic. This treatment plan has been reviewed and agreement upon by the patient.
--- NOTE | 2024-11-28 12:59 | BUSTOPDC ---
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 Patient reported that she noticed changes in her voice over the past 5 years . She reported that it has not gotten significantly worse but it is very different from what is was prior to the onset and it impacts her overall ability to communicate with others. Patient reported that around that time she had a lot of other health problems and was diagnosed with Parkinsonism. She went to the hospital with severe shaking in her legs, arms and mouth. She was then instructed to stop taking the current medicine she had been taking for years due to the causes of dyskinesia. Patient reported that she always feels that she has an enlarged tongue and this causes difficulty in speech and swallowing. She had Botox injections in the past (unable to recall exact date) to tongue to attempt reduce tongue tremor with some noted improvements. Patient reported that her voice impacts her daily and her goal is to improve her overall clarity of speech. Patient reported that she did not feel she was improving with her speech/voice skills and feels that it will never get better. Patient would like to be discharged from skilled ST at this time. Reported Pain Level Pain Score 2: Self Report Pain Score 6: Self Report Pain Score 0: Self Report Pain Score 2: Self Report Assessment ST Clinical Summary Patient was referred for a skilled ST evaluation by her doctor for dysphonia, drug induced subacute dyskinesia and unspecified speech disturbance. Patient reported that she continues to struggle with her voice and it is very different than her normal. She experienced an episode of medical issues around 5 years ago along with impaired speech that never returned to her normal. She reported that she was later on diagnosed with Parkinsonism. She feels that her tongue always feels enlarged and also has difficulty with her breathing impacting her overall speech skills. She had Botox injections in the past for her tongue and felt that it helped some. Throughout the evaluation the patient presented with moderate/ severe vocal hoarseness, moderate harshness, mild/ moderate breathiness. She presented with difficulty sustaining ah sound for appropriate length of time 12 seconds (goal is 15-25 seconds). S:Z ratio was also 1.8 indicating potential problems with glottal valving. Patient presented with good overall speech intelligibility skills but presented with some breathy vocal quality. Patient expressed that her voice continues to impact her overall ability to communicate with familiar and unfamiliar listeners in person and on the phone resulting in frequent frustration with vocal quality. Patient completed [address] treatment sessions through use of vocal function exercises and reported that she has not noticed an improvement in her voice skills. She stated that she felt that it would never get better and wishes to be discharged from skilled ST at this time. Plan of Care Interventions Treatment of Voice Treatment Frequency and Discharge at this time. Duration
--- NOTE | 2024-12-12 14:35 | PCPTNOTE ---
Patient requested to go down to 1x/week which is why her appointment on 12/12 was cancelled.
--- NOTE | 2024-12-28 15:30 | OPREHPOC ---
Outpatient Therapy Plan of Care This is a Multidisciplinary Plan of Care that may contain components documented by all disciplines (PT, OT, and ST.) PT Problem 1 PT Problem #1 Knowledge Deficit PT Goal 1 Goal / Goal Update [place] with HEP Target Visit 4 Progress Met PT Goal 2 Goal / Goal Update Report no pain greater than 2/10 for 2 consecutive weeks Target Visit 8 Progress Partially Met PT Problem 2 PT Problem #2 Impaired Range of Motion PT Goal 1 Goal / Goal Update 1. Improve abbie hip abduction to 35 degrees to reduce capsular restriction 2. Improve abbie cervical rotation to 35 degrees to improve facet mobility and posturing. Progress Not Met PT Problem 3 PT Problem #3 Impaired Functional Mobility PT Goal 1 Goal / Goal Update Report 20% improvement in functional outcome score to reduce gross disability Target Visit [address] Problem [address] ST Problem #[address] Goal 1 Goal / Goal Update 1. Patient will participate in home programming to facilitate carryover/generalization of skills to patient's environment. -Discharge goal with limited carryover/ participation on home programming. Target Visit [address] Problem 2 ST Problem #[address] Goal 1 Goal / Goal Update 1. Patient will identify and reduce use and misuse with voice with minimal to no cues to improve overall voice quality. -Discharge goal 2. Patient will decrease vocal fatigue, less effort speaking, through patient report with minimal loss of voice & vocal hoarse weekly for 3 consecutive sessions. -Discharge goal with moderate vocal hoarseness at discharge. Target Visit [address] Problem [address] ST Problem #[address] Goal 1 Goal / Goal Update 1. Patient will demonstrate improved coordination in diaphragmatic breathing with min cues in upright position through sustained sounds with minimal loss and breathiness. -Discharge with max cues 2. Patient will sustain /i/ sound through vocal function exercise for 18+ seconds 5 reps with minimal vocal hoarseness. -Discharge sustained 13-16 seconds 3. Patient will perform semi occluded vocal tract exercise low to high and high to low with minimal to no vocal hoarseness for 3 consecutive sessions -Discharge with max cues and moderate vocal hoarseness 4. Patient will perform adductory stretching exercise producing o sound on musical notes (C,D ,E,F,G) for 18+ seconds for 3 consecutive sessions . -Discharge range of 8-16 seconds for various pitches 5. Patient will speak at the conversation level with minimal vocal harshness, hoarseness, breathiness, vocal gabriel through patient report and clinician report for 3 consecutive sessions. -Discharge goal with moderate vocal hoarseness and harshness upon discharge Target Visit 10
--- NOTE | 2024-12-28 15:30 | PTOPDC ---
Assessment and note entered by Troy Drake, PT Evaluation Information Assessment Status Discharge ICD-10 Condition Codes (PT) Pain in right shoulder M25.511,Pain in right knee M25.561 Subjective Information Reports that overall her knee is better but she still has occasional pain in the knee and in the hip . She notices it still when she is getting out of a car and out of bed. She is unsure of how to roll herself to relieve pain. Neck is overall doing well. Reported Pain Level Pain Score 5,0,5: Self Report Assessment PT Clinical Summary Patient met all personal goals for therapy. Demonstrate understanding of HEP and proper performance at this time. Patient continues to demonstrate some stiffness and pain in hip and will be addressed through HEP. Will be discharged at this time per patient request. Plan of Care PT Services Indicated Yes
== END 2024-12-31 12:42 | disposition home or self-care (01) ==
LOC: ANHGOSHPT 14:30
PROVIDERS: PCP Family Medicine; Visit Provider Family Medicine
DX: R49.0 Dysphonia (principal); R47.9 Unspecified speech disturbances; G24.01 Drug induced subacute dyskinesia
CPT/HCPCS: 92507; 92524; 97110; 97140; 97161; 97530